=== PATIENT | male | born 1955 | race Caucasian/White ===

== ENCOUNTER → 2017-09-11 | Outpatient (CLI) | payer OTHER ==
--- NOTE | 2017-09-11 16:26 | CT ---
CTA neck EXAM DESCRIPTION: CTA Neck: Computed Tomography. CLINICAL HISTORY: CAROTID STENOSIS COMPARISON: None. TECHNIQUE: Spiral, axial 2.5 mm scans through the neck soft tissues after bolus infusion of IV contrast. Coronal and sagittal 2.0 mm reconstructions. 3D volume rendering images with and without plaque, 0.6 mm, rotating axis . Percentage of stenosis or no stenosis recorded will be based upon NASCET criteria. Total Exam DLP: 818.13 mGy-cm. This exam was performed according to our departmental CT dose-optimization program which includes automated exposure control, adjustment of the mA and/or kV according to patient size and/or use of iterative reconstruction technique; to reduce radiation dose to as low as reasonably achievable (ALARA). FINDINGS: Customary origin of the left common carotid from the aortic arch. Customary origin of the right CCA from the right innominate artery. Bifurcation right CCA is unremarkable. Minimal atherosclerotic calcification of the left CCA bulb and the lateral wall of the proximal left ICA with narrowing less than 20%. No narrowing of the bilateral ICAs in the cervical segment, skull base, cavernous, or intracranial segments. Bifurcations unremarkable intracranially. No aneurysms, stenoses, vasculitis, or mass affect. Customary origins of the bilateral vertebral arteries from the subclavian arteries. Venous collaterals from the injection in the vicinity of the proximal left artery. Left artery is dominant compared to the right vertebral artery in the intervertebral foramina and at the skull base to the formation of the basilar artery. Minimal calcification of the wall the left vertebral artery above the foramen magnum. Bilateral AICA and PICA vessels are unremarkable. Basilar artery bifurcation to form the posterior cerebral arteries is unremarkable. No dominant posterior communicating artery bilaterally. No aneurysm, stenoses, mass effect, or vasculitis. Included lung parenchyma are unremarkable. Spondylosis C4-5 and C6-7 and C7-T1. Narrowing right C6-7 neural foramen. Minimal arthrosis of the atlantoaxial joint. No soft tissue masses or enlarged lymph nodes in the included neck. IMPRESSION: 1. CTA of the major arterial vessels of the neck showing no hemodynamically significant stenosis. No aneurysms, mass effect, or vasculitis. 2. 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 Electronically signed by: Kevin Allen MD 09/11/2017 4:25 PM [facility]
== END ==
LOC: LAB.O 08:26
PROVIDERS: ATTEND Family Medicine
DX: I65.23 Occlusion and stenosis of bilateral carotid arteries (principal); R07.89 Other chest pain; I20.9 Angina pectoris, unspecified

== ENCOUNTER → 2018-08-21 | Outpatient (CLI) | payer OTHER ==
--- NOTE | 2018-08-21 16:41 | MRI ---
EXAM DESCRIPTION: MRI right wrist CLINICAL HISTORY: Mass lesion/swelling along the posterior wrist. Wrist pain COMPARISON: None. TECHNIQUE: Multiplanar, multisequence MR images of the right wrist FINDINGS: Moderate volume of fluid in the extensor digitorum tendon sheath from the distal radial metaphysis through the distal carpal row with most of the fluid overlying the carpal bones. Thin septations. Short segment chronic thickening of the tendon sheath at the level of the radiocarpal compartment. Overlying subcutaneous soft tissue edema and swelling. No intrinsic tendon signal abnormality. Small focus of reactive edema in the subjacent dorsal radius Minimal fluid extensor carpi ulnaris talus tendon sheath. Flexor tendons are normal. Normal contrast canal and carpal tunnel Release complex is normal. Scapholunate and lunotriquetral ligaments are intact. Normal intercarpal distances Small focus of edema in the proximal hamate at the articulation with the capitate from thickness fissure/small focus of chondrosis over about 3 mm. 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 Small focus of underlying reactive mechanical edema in the dorsal lip of the radius Electronically signed by: Karl Dumas MD 08/21/2018 4:40 PM [facility]
== END ==
LOC: MRI 13:42
PROVIDERS: ATTEND Orthopaedic Surgery
DX: R22.31 Localized swelling, mass and lump, right upper limb (principal); M65.831 Other synovitis and tenosynovitis, right forearm

== ENCOUNTER → 2018-09-14 | Outpatient (CLI) | payer OTHER ==
--- NOTE | 2018-09-14 15:53 | CT ---
EXAM DESCRIPTION: Abdoment/Pelvis w/o Contrast: Computed Tomography. CLINICAL HISTORY: 63 years Male MICROSCOPIC HEMATURIA COMPARISON: None. TECHNIQUE: Spiral-axial scans 5 x 5 mm intervals through the abdomen and pelvis without oral or IV contrast. Coronal and sagittal 2 x 2 mm reconstructions. Total Exam DLP: 688 mGy-cm. This exam was performed according to our departmental CT dose-optimization program which includes automated exposure control, adjustment of the mA and/or kV according to patient size and/or use of iterative reconstruction technique; to reduce radiation dose to as low as reasonably achievable (ALARA). FINDINGS: Kidneys and Ureters: Unusual thickening of the cortex of the anterior mid left kidney on axial series 2, images 32-37 the density seems uniform with no calcifications. 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 2 proximal ureters join approximately 4 cm from the pelvis. No stones in the collecting system or hydronephrosis. Similar appearance of the right kidney and right renal pelvis except for skeletal left ureter visualized proximally. Bilateral ureters normal caliber and appearance. Bilateral pararenal fascial thickening is symmetric with no periureteral thickening. Pelvic Organs: No radiodense stones in the distal ureters or urinary bladder. Calcifications in the pelvis. Prostate gland abutting the seminal vesicles and urinary bladder. No free fluid. Lung bases and pleura: Negative. Liver, stomach, spleen, and adrenal glands: Unremarkable. Pancreas, Gallbladder, and Ducts: Negative. Aorta: Minimal atherosclerotic calcification. No para-aortic mass. Small Bowel: Minimal fatty density around anterior upper mid abdomen small bowel loops and inferior to the pancreas. No distention or significant air-fluid levels. Terminal Ileum/Cecum: Unremarkable. Normal caliber of the appendix. Normal density of surrounding fat. Colon: Minimal fecal material proximal colon. Diverticula sigmoid colon with no evidence of complications. Spine and Bony Pelvis: Minimal disc space narrowing L5-S1 and L4-5. Minimal bony hypertrophy bilateral superior lateral acetabular margins. Subcortical bone density loss superior lateral left femoral neck. Soft tissue calcifications anterior and lateral to the right hip joint. Sclerotic bone islands in the pelvic bone proximal femurs. Abdominal Wall/Back Soft Tissues: Minimal diastases at at the umbilicus but no bowel hernia. IMPRESSION: 1. 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 No abnormal perinephric stranding. No radiodense stones or hydronephrosis bilaterally. With history of hematuria, consider follow-up CT study with IV contrast. No radiodense stones in the ureters or urinary bladder. 2. Increased density in the mesentery around proximal small bowel and inferior to the pancreas. Nonspecific finding but could indicate gastroenteritis. No abscess fluid collection or ascites. Diverticulosis without complications distal colon. 3. Hypertrophy of the left acetabulum and some cortical bone changes lateral proximal left femoral neck may indicate femoral acetabular impingement. Electronically signed by: Kevin Allen MD 09/14/2018 3:51 PM [facility]
== END ==
LOC: CT 08:38
PROVIDERS: ATTEND Family Medicine
DX: R31.21 Asymptomatic microscopic hematuria (principal); K57.30 Diverticulosis of large intestine without perforation or abscess without bleeding

== ENCOUNTER → 2018-09-26 | Outpatient (CLI) | payer OTHER ==
--- NOTE | 2018-09-27 09:24 | CT ---
EXAM DESCRIPTION: Abdomen/Pelvis w/Contrast: Computed Tomography. CLINICAL HISTORY: 63 years Male NONSPECIFIC ABDOMINAL ABNORMALITY ON CT OR MRI COMPARISON: CT scan abdomen and pelvis without IV contrast 09/14/2018. TECHNIQUE: Spiral-axial scans at 5 x 5 mm intervals through the abdomen and pelvis, after nonionic IV contrast without oral contrast. oral contrast. Coronal and sagittal 2.0 mm reconstructions. 5 minute Delayed scans, liver through the pelvis. Axial-spiral 5mm. No adverse reactions. Total Exam DLP: 2769.15 mGy-cm. This exam was performed according to our departmental dose-optimization program which includes automated exposure control, adjustment of the mA and/or kV according to patient size and/or use of iterative reconstruction technique; to reduce radiation dose to as low as reasonably achievable (ALARA). FINDINGS: Kidneys and Ureters: Bilateral kidneys are partially duplicated with more separation on the left than the right. 2 collecting systems in the left kidney with ureters joining approximately 3 cm distal to the renal pelvis. 2 collecting systems of the right kidney joining at the renal pelvis with single ureters bilaterally. No hydronephrosis bilaterally or hydroureter. Minimal pararenal fatty stranding is symmetric and stable. No radiodense stones in the urinary bladder. Lung bases and pleura: Minimal atelectasis bilateral bases. Liver, Stomach, Spleen, Adrenal Glands: Unremarkable. Pancreas, Gallbladder, Ducts: Negative. Mesentery: Unremarkable. Aorta: Minimal atherosclerotic calcification distally normal caliber. Small Bowel: Normal caliber. Terminal Ileum/Cecum: Normal caliber of the TI. Mild distention of the cecum by fecal material. Normal caliber of the appendix. Normal density of the surrounding fat. Colon: Mostly fecal material throughout the colon most distally with no evidence of obstruction or complications. Small sigmoid diverticula. Pelvic Organs: Minimal contrast in the urinary bladder. Prostate gland with calcifications abutting the seminal vesicles and urinary bladder. Spine and Bony Pelvis: Again noted is minimal disc space narrowing L4-5 and L5-S1. Left femoral neck subcortical bone loss and sclerotic bone areas bilaterally. Abdominal Wall/Back Soft Tissues: Stable since the prior study. IMPRESSION: 1. 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 No hydronephrosis or hydroureter. Urinary bladder unremarkable but because of not well evaluated due to lack of IV contrast filling. 2. Remainder of the abdomen and pelvis stable since the prior study. Electronically signed by: Kevin Allen MD 09/27/2018 9:21 AM [facility]
== END ==
LOC: CT 09:24
PROVIDERS: ATTEND Family Medicine
DX: R31.21 Asymptomatic microscopic hematuria (principal); R93.41 Abnormal radiologic findings on diagnostic imaging of renal pelvis, ureter, or bladder

== ENCOUNTER → 2019-01-10 | Outpatient (CLI) | payer OTHER | LOC: GMAM 10:29 | PROVIDERS: ATTEND Family Medicine | DX: E29.9 Testicular dysfunction, unspecified (principal) ==

== ENCOUNTER → 2019-04-23 | Outpatient (CLI) | payer OTHER | LOC: GMAM 11:55 | PROVIDERS: ATTEND Family Medicine | DX: E53.9 Vitamin B deficiency, unspecified (principal); I10 Essential (primary) hypertension; R73.9 Hyperglycemia, unspecified; E29.9 Testicular dysfunction, unspecified ==

== ENCOUNTER → 2020-02-26 | Outpatient (CLI) | payer OTHER | LOC: GMAM 10:33 | PROVIDERS: ATTEND Family Medicine | DX: E53.9 Vitamin B deficiency, unspecified (principal); E29.9 Testicular dysfunction, unspecified; I10 Essential (primary) hypertension ==